=== PATIENT | female | born 1965 | race Caucasian/White ===

== ENCOUNTER 2016-04-08 12:52 | Emergency (ER) | payer BC ==
[2016-04-08 13:12] VITALS: RESP 18; TEMP 97.8
--- NOTE | 2016-04-08 14:35 | ED ---
Fall HPI - General Chief Complaint: Fall Stated Complaint: Fall- Head Injury Time Seen by Provider: 04/08/16 14:03 Source: patient, RN notes reviewed, old records reviewed Mode of arrival: ambulatory - History of Present Illness Initial Comments: Patient is a 51-year-old female presenting to the was she complaining of falling and hitting the back of her head while slipping on ice. Patient reports that she felt confused for a few minutes afterwards. She denies any specific loss of consciousness. She states she is on any blood thinners. She states that she's had multiple falls in the past however has never had a fall this hard to her head. She states that she does have a headache at this time. She did not take any Motrin or Tylenol at home. Patient denies any specific neurological deficits including vision changes, peripheral paresthesias or paralysis. Patient denies any recent fever, chills, shortness of breath, chest pain, back pain, abdominal pain, nausea vomiting, numbness or tingling, dysuria or hematuria, constipation or diarrhea, or visual changes, or any other current symptoms - Related Data Home Medications Medication Instructions Recorded Confirmed ALPRAZolam [Xanax] 0.25 mg PO BID PRN 05/13/15 05/13/15 Cholecalciferol [Vitamin D3] 4,000 unit PO DAILY 05/13/15 05/13/15 Loratadine [Claritin] 10 mg PO DAILY 05/13/15 05/13/15 Multivit-Min/FA/Lycopene/Lut 1 each PO DAILY 05/13/15 05/13/15 [Centrum Silver Tablet] Simvastatin [Zocor] 10 mg PO HS 05/13/15 05/13/15 Allergies Allergy/AdvReac Type Severity Reaction Status Date / Time No Known Allergies Allergy Verified 05/13/15 16:04 Review of Systems ROS Statement: Those systems with pertinent positive or pertinent negative responses have been documented in the HPI. ROS Other: All systems not noted in ROS Statement are negative. Past Medical History Past Medical History: Hyperlipidemia Additional Past Medical History / Comment(s): allergies, kidney stones History of Any Multi-Drug Resistant Organisms: None Reported Past Surgical History: Tubal Ligation Additional Past Surgical History / Comment(s): kidney stone destruction Past Psychological History: Anxiety Smoking Status: Never smoker Past Alcohol Use History: Rare Past Drug Use History: None Reported General Exam - General Exam Comments Initial Comments: is a pleasant 51-year-old female. She does not appear to be in any specific distress at this time. Limitations: no limitations General appearance: alert, in no apparent distress Head exam: Present: atraumatic, normocephalic, normal inspection Eye exam: Present: normal appearance, PERRL, EOMI. Absent: scleral icterus, conjunctival injection, periorbital swelling ENT exam: Present: normal exam, normal oropharynx, mucous membranes moist, TM's normal bilaterally Neck exam: Present: normal inspection. Absent: tenderness, meningismus, lymphadenopathy Respiratory exam: Present: normal lung sounds bilaterally. Absent: respiratory distress, wheezes, rales, rhonchi, stridor Cardiovascular Exam: Present: regular rate, normal rhythm, normal heart sounds. Absent: systolic murmur, diastolic murmur, rubs, gallop, clicks GI/Abdominal exam: Present: soft, normal bowel sounds. Absent: distended, tenderness, guarding, rebound, rigid Extremities exam: Present: normal inspection, full ROM, tenderness (Reports some cervical spinal tenderness.), normal capillary refill. Absent: pedal edema , joint swelling, calf tenderness Back exam: Present: normal inspection, full ROM Neurological exam: Present: alert, oriented X3, CN II-XII intact Expanded Patient oriented to: Present: person, place, time Speech: Present: fluid speech Cranial nerves: EOM's Intact: Normal, Gag Reflex: Normal, Tongue Deviation: Normal Cerebellar function: Finger to Nose: Normal Upper motor neuron: Sanket Neglect: Normal Sensory exam: Upper Extremity Light Touch: Normal, Lower Extremity Light Touch: Normal Motor strength exam: RUE: 5, LUE: 5, RLE: 5, LLE: 5 Eye Response: (4) open spontaneously Motor Response: (6) obeys commands Verbal Response: (5) oriented [place] Total: 15 Psychiatric exam: Present: normal affect, normal mood Skin exam: Present: warm, dry, intact, normal color. Absent: rash Course Vital Signs 04/08/16 04/08/16 13:08 15:33 Temperature 97.8 F Pulse Rate 69 73 Respiratory 18 18 Rate Blood Pressure 184/91 147/94 O2 Sat by Pulse 99 98 Oximetry Medical Decision Making - Medical Decision Making Patient is a 51-year-old male presenting to the EC if she complaint of falling and hitting her head on the ice. She states that she has a headache at this time. She has no neurological deficits this time. She is not on any blood thinners. Patient is given a CT brain and C-spine. Computed tomography scan brain and C-spine reviewed to be negative for any acute process. Patient states that she is not on any pain medications. Patient will be discharged at this time instructed to follow-up with her primary care physician in regards to her high blood pressure. Patient understands treatment plan will comply. Return parameters discussed and head injury instructions discussed. - Radiology Data Radiology results: report reviewed There is no acute fracture dislocation evident cervical spine. There is no acute cranial hemorrhage., Mass effect or midline shift seen. Patient cervical spine show satisfactory alignment without evidence of fracture dislocation. Multiple spondylosis present in loss of disc height present at C5 and C6 through 7. There is posterior osteophyte disc complex causing anterior mass effect on the thecal sac. There is associated foraminal encroachment present at C6 through 7 on the greater on the left than the right. Patient prevertebral soft tissue appears within normal limits. The C1-C2 articulation is unremarkable. Dr. Piper. Disposition Clinical Impression: Head injury without skull fracture, Headache, Hypertension Disposition: HOME SELF-CARE Condition: Good Instructions: Head Injury (ED), Concussion (ED) Additional Instructions: Patient instructed to take Motrin Tylenol for headaches. Patient is to follow- up with primary care physician in regards to high blood pressure. Return to the EC if any alarming signs or symptoms occur. Patient is instructed to follow head injury instructions. Referrals: Risa Aquino MD [Primary Care Provider] - 1-2 days Time of Disposition: 15:21
--- NOTE | 2016-04-08 15:18 | CT ---
EXAMINATION TYPE: CT brain cspine wo con DATE OF EXAM: 04/08/2016 3:00 PM COMPARISON: MR cervical spine performed May 2015, plain films 13 May 2015 HISTORY: Fall on ice. Posterior head injury. Loss of consciousness. CT DLP: 1433.90 mGycm Automated exposure control for dose reduction was used. TECHNIQUE: CT scan of the head and cervical spine are performed without contrast. FINDINGS: There is no acute intracranial hemorrhage, mass effect, or midline shift identified. The ventricles and sulci are within normal limits in size. The globes are intact and the visualized sin uses are clear. Small cephalohematoma present at the posterior scalp parietal level. Cervical spine is visualized in its entirety from C1 through upper thoracic levels and demonstrates s atisfactory alignment without evidence of acute fracture or dislocation. Multilevel spondylosis is pr esent, loss of disc height is present at C5-6 and C6-7, posterior osteophyte disc complex causes ante rior mass effect on the thecal sac. There is associated foraminal encroachment present on the right a t C6-7 greater than left, bilaterally at C5-6. Prevertebral soft tissue appears within normal limits. The C1-C2 articulation is unremarkable. IMPRESSION: 1. There is no acute fracture or dislocation evident in the cervical spine. 2. No acute intracranial hemorrhage, mass effect, or midline shift is seen.
[2016-04-08 15:34] VITALS: BP 147/94; PULSE 73
== END 2016-04-08 15:37 | disposition home or self-care (01) ==
LOC: EC 12:52
DX: S06.0X0A Concussion without loss of consciousness, initial encounter (principal); M47.812 Spondylosis without myelopathy or radiculopathy, cervical region; I10 Essential (primary) hypertension; E78.5 Hyperlipidemia, unspecified; F41.9 Anxiety disorder, unspecified; Z87.442 Personal history of urinary calculi; Z79.899 Other long term (current) drug therapy; W00.0XXA Fall on same level due to ice and snow, initial encounter
CPT/HCPCS: 70450; 72125; 99284

== ENCOUNTER → 2018-04-08 | Outpatient (CLI) | payer BC ==
--- NOTE | 2018-04-08 15:23 | CT ---
EXAMINATION TYPE: CT abdomen pelvis w con DATE OF EXAM: 04/08/2018 COMPARISON: NONE HISTORY: 53-year-old female LLQ pain TECHNIQUE: Contiguous axial scanning of the abdomen and pelvis following administration of 100 ml Iso leonardo 300 IV contrast. Delayed images through the kidneys and coronal/sagittal reconstructions perform ed. CT DLP: 524.2 mGycm Automated exposure control for dose reduction was used. FINDINGS: LUNG BASES: Mild dependent atelectasis without pleural effusion. LIVER/GB: Small amount of focal fat along the anterior falciform ligament. Otherwise, no specific abn ormality. PANCREAS: No significant abnormality is seen. SPLEEN: No significant abnormality is seen. ADRENALS: No significant abnormality is seen. KIDNEYS: 2.6 cm cyst lateral right kidney. Otherwise, symmetric uptake and excretion of contrast. No hydronephrosis. REPRODUCTIVE ORGANS: 1.6 cm dominant follicle or functional cyst in the right ovary. Peripherally enh ancing 1.2 cm cystic structure left ovary could represent a recently ruptured follicle or corpus lute um. Uterus is retroflexed with possible fluid within the uterine cavity or prominent endometrial thic kening. BOWEL: Normal appendix. Oral contrast progressed to the hepatic flexure. Mild stool burden. Mild lef t-sided colonic diverticulosis. No pericolonic inflammatory change. No mesenteric or retroperitoneal lymphadenopathy seen. Bones: Mild degenerative changes at the hips. Additional degenerative changes with moderate to severe degenerative disc disease at L5-S1. No osseous destructive process. IMPRESSION: 1. LIMITED ASSESSMENT OF PELVIC STRUCTURES BY CT. THE UTERUS IS RETROFLEXED AND COULD HAVE SOME FLUID IN THE UTERINE CAVITY OR PROMINENT ENDOMETRIAL THICKENING. ULTRASOUND CAN BE PERFORMED IF CONCERN FO R PELVIC PATHOLOGY. 2. 1.6 CM DOMINANT FOLLICLE OR FUNCTIONAL CYST OF THE RIGHT OVARY AND A 1.2 CM RECENTLY RUPTURED FOLL ICLE OR CORPUS LUTEUM IN THE LEFT. 3. MILD DIVERTICULAR CHANGE IN THE LEFT SIDE OF COLON. NO EVIDENCE FOR ACUTE DIVERTICULITIS.
== END | disposition home or self-care (01) ==
LOC: RADCTMAIN 12:21
PROVIDERS: ATTEND Family Medicine
DX: N83.201 Unspecified ovarian cyst, right side (principal); K57.30 Diverticulosis of large intestine without perforation or abscess without bleeding; Z87.442 Personal history of urinary calculi
CPT/HCPCS: 74177; Q9967

== ENCOUNTER → 2018-12-03 | Outpatient (CLI) | payer BC ==
--- NOTE | 2018-12-03 12:29 | EST ---
EXERCISE STRESS AGE: 53 SEX: F HT: 65" WT: 162 PROTOCOL: Veto Stress Test STAGE: III DURATION OF EXERCISE: 9:00 HEART RATE REST: 72 BLOOD PRESSURE REST: 153/104 MAXIMUM HEART RATE ACHIEVED: 157 MAXIMUM BLOOD PRESSURE: 194/90 85% MPHR: 140 100% MPHR: 165 METS: 10.5 INDICATIONS: Chest pain. CLINICAL INFORMATION: STRESS DATA: Heart rate 72, pressure 153/104 mmHg. Baseline EKG showed sinus mechanism. The patient exercised on the treadmill according to Veto protocol for a total of 9 minutes and achieved 10.5 METS with max heart rate was 151 study 157, which is about 92% of maximum predicted heart rate with maximum pressure of 194/90 mmHg. Clinically, the patient did not have any symptoms of chest pain or chest discomfort. The EKG did not show any significant ST or T-wave abnormalities concerning for ischemia. CONCLUSION: 1. Excellent exercise tolerance. 2. Normal EKG in response to exercise. 3. Essentially normal exercise treadmill stress test for the patient. MMODL / IJN: [id number] /
== END | disposition home or self-care (01) ==
LOC: RADNMMAIN 08:20
PROVIDERS: ATTEND Family Medicine
DX: R07.89 Other chest pain (principal)
CPT/HCPCS: 93017

== ENCOUNTER → 2018-12-15 | Outpatient (CLI) | payer BC ==
--- NOTE | 2018-12-15 14:00 | US ---
EXAMINATION TYPE: US venous doppler duplex LE LT DATE OF EXAM: 12/15/2018 1:36 PM COMPARISON: NONE CLINICAL HISTORY: S76.812A,M25.552 STRAIN MUSCLES, FASCIA AND TENDONS LT. Lump left groin, pain left leg SIDE PERFORMED: left TECHNIQUE: The lower extremity deep venous system is examined utilizing real time linear array sonog melba with graded compression, doppler sonography and color-flow sonography. VESSELS IMAGED: External Iliac Vein (EIV) Common Femoral Vein Deep Femoral Vein Greater Saphenous Vein * Femoral Vein Popliteal Vein Small Saphenous Vein * Proximal Calf Veins (* superficial vessels) There is normal flow, compressibility, vascular waveforms. Left Leg: No evidence of DVT. Scanned within area of patient's lump (left medial groin), probable li cammy, isoechoic area = 1.6 x 0.5 x 1.9cm IMPRESSION: No evident deep venous thrombosis. Probable lipoma at the site of patient's palpable a bnormality.
--- NOTE | 2018-12-15 15:20 | XR ---
EXAMINATION TYPE: XR Hip Complete LT DATE OF EXAM: 12/15/2018 COMPARISON: NONE HISTORY: Pain TECHNIQUE: 2 views submitted FINDINGS: There is no evidence of erosive change or acute fracture. Mild concentric narrowing the joint space with hypertrophic change of the acetabulum. Mild diffuse os teopenia. IMPRESSION: 1. Mild arthropathy correlate for femoral acetabular impingement.
== END | disposition home or self-care (01) ==
LOC: RADUSWWP 12:55
PROVIDERS: ATTEND Family Medicine
DX: S76.812A Strain of other specified muscles, fascia and tendons at thigh level, left thigh, initial encounter (principal)
CPT/HCPCS: 73502

== ENCOUNTER 2020-06-17 19:53 | Emergency (ER) | payer BC ==
[2020-06-17 20:32] VITALS: RESP 18; TEMP 98.3
--- NOTE | 2020-06-17 20:58 | XR ---
RESULT: HISTORY: fall TECHNIQUE: 3 views of the right shoulder. 2 views of the right humerus. COMPARISON: None. FINDINGS: There is no acute fracture or dislocation of the right shoulder or humerus. There is a tiny osteophyt e anterior inferior glenoid. Otherwise the visualized joint spaces are grossly preserved. IMPRESSION: No acute osseous abnormality of the right shoulder or humerus.
--- NOTE | 2020-06-17 21:29 | ED ---
General Adult HPI - General Chief complaint: Abdominal Pain Stated complaint: Fell off horse 1 week ago Time Seen by Provider: 06/17/20 20:37 Source: patient Mode of arrival: ambulatory Limitations: no limitations - History of Present Illness Initial comments: Patient is a 55-year-old female presenting to the emergency Department with complaints of right shoulder and right arm pain as well as some mild right-sided belly pain over the past week. Patient states 6 days ago she fell off a horse landing mostly on her right side in the position. Patient states she was evaluated by her PCP 4 days later who stated she mostly has contusions but was concerned for "possible liver laceration." Patient states she isn't really having much anterior abdominal pain, a little bit in the right upper quadrant but she describes it is very deep in nature. She does have some very mild right sided lateral rib pain as well as right upper arm and right shoulder pain. She states she is able to move it around it just hurts. She denies hitting her head, she did have a helmet on. She denies loss of consciousness. She denies any chest pain or shortness of breath at this time. She states she has been eating and drinking as normal, no nausea or vomiting, no diarrhea. She is urinating without difficulty. She has no further complaints. - Related Data Home Medications Medication Instructions Recorded Confirmed ALPRAZolam [Xanax] 0.25 mg PO BID PRN 05/13/15 05/13/15 Cholecalciferol [Vitamin D3] 4,000 unit PO DAILY 05/13/15 05/13/15 Loratadine [Claritin] 10 mg PO DAILY 05/13/15 05/13/15 Multivit-Min/FA/Lycopen/Lutein 1 each PO DAILY 05/13/15 05/13/15 [Centrum Silver Tablet] Simvastatin [Zocor] 10 mg PO HS 05/13/15 05/13/15 Allergies Allergy/AdvReac Type Severity Reaction Status Date / Time No Known Allergies Allergy Verified 06/17/20 20:33 Review of Systems ROS Statement: Those systems with pertinent positive or pertinent negative responses have been documented in the HPI. ROS Other: All systems not noted in ROS Statement are negative. Past Medical History Past Medical History: Hyperlipidemia Additional Past Medical History / Comment(s): allergies, kidney stones History of Any Multi-Drug Resistant Organisms: None Reported Past Surgical History: Tubal Ligation Additional Past Surgical History / Comment(s): kidney stone destruction Past Psychological History: Anxiety Smoking Status: Never smoker Past Alcohol Use History: Rare Past Drug Use History: None Reported General Exam - General Exam Comments Initial Comments: GENERAL: Patient is well-developed and well-nourished. Patient is nontoxic and in no acute distress. HEAD: Atraumatic, normocephalic. EYES: Pupils equal round and reactive to light, extraocular movements intact, sclera anicteric, conjunctiva are normal. Eyelids were unremarkable. ENT: TMs normal, nares patent, oropharynx clear without exudates. Moist mucous membranes. NECK: Normal range of motion, supple without lymphadenopathy or JVD. LUNGS: Unlabored respirations. Breath sounds clear to auscultation bilaterally and equal. No wheezes rales or rhonchi. HEART: Regular rate and rhythm without murmurs, rubs or gallops. ABDOMEN: Soft, very mild right upper quadrant tenderness. normoactive bowel sounds. No guarding, no rebound. No masses appreciated. : Deferred MUSCULOSKELETAL: Some mild pain with active range of motion of the right shoulder. No specific area tenderness, soreness all around. No bruising or signs of deformity. Neurovascular intact upper extremities bilaterally. No clubbing or cyanosis. Mild pain with palpation of the right lateral ribs. No step-off deformity, no crepitus. NEUROLOGICAL: Patient is alert and oriented x 3. Motor and sensory are also intact. Cranial nerves II through XII grossly intact. Symmetrical smile. Normal speech, normal gait. PSYCH: Normal mood, normal affect. SKIN: Warm, Dry, normal turgor, no rashes or lesions noted. Limitations: no limitations Course Vital Signs 06/17/20 06/17/20 20:25 22:03 Temperature 98.3 F Pulse Rate 82 68 Respiratory 18 18 Rate Blood Pressure 197/139 160/92 O2 Sat by Pulse 97 98 Oximetry Medical Decision Making - Medical Decision Making Patient is a 55-year-old female here with right shoulder and right arm pain as well as some mild right upper quadrant pain after she fell off a horse 6 days ago. Vital signs are stable. X-rays of the right shoulder and right humerus reveal no acute abnormality. Ultrasound revealed no acute abnormality of the liver, no gallstones or other abnormalities. Lab work is stable. I discussed these findings with the patient. She may continue with Motrin or Aleve for any discomfort. She can follow up with her PCP. Patient is stable for discharge. Patient is in agreement with this plan of care. Return parameters were discussed with the patient and they verbalized understanding. Case discussed with Dr. Marroquin. - Lab Data Result diagrams: 06/17/20 22:13 06/17/20 22:13 Lab Results 06/17/20 06/17/20 Range/Units 22:13 22:13 WBC 4.4 (3.8-10.6) k/uL RBC 4.69 (3.80-5.40) m/uL Hgb 14.6 (11.4-16.0) gm/dL Hct 41.4 (34.0-46.0) % MCV 88.3 (80.0-100.0) fL MCH 31.1 (25.0-35.0) pg MCHC 35.2 (31.0-37.0) g/dL RDW 12.1 (11.5-15.5) % Plt Count 307 (150-450) k/uL MPV 6.4 Neutrophils % 44 % Lymphocytes % 43 % Monocytes % 5 % Eosinophils % 5 % Basophils % 1 % Neutrophils # 2.0 (1.3-7.7) k/uL Lymphocytes # 1.9 (1.0-4.8) k/uL Monocytes # 0.2 (0-1.0) k/uL Eosinophils # 0.2 (0-0.7) k/uL Basophils # 0.0 (0-0.2) k/uL Sodium 139 (137-145) mmol/L Potassium 4.1 (3.5-5.1) mmol/L Chloride 106 (98-107) mmol/L Carbon Dioxide 24 (22-30) mmol/L Anion Gap 9 mmol/L BUN 21 H (7-17) mg/dL Creatinine 0.71 (0.52-1.04) mg/dL Est GFR (CKD-EPI)AfAm >90 (>60 ml/min/1.73 sqM) Est GFR (CKD-EPI)NonAf >90 (>60 ml/min/1.73 sqM) Glucose 95 (74-99) mg/dL Calcium 9.5 (8.4-10.2) mg/dL Total Bilirubin 0.6 (0.2-1.3) mg/dL AST 40 H (14-36) U/L ALT 54 H (4-34) U/L Alkaline Phosphatase 131 H (38-126) U/L Total Protein 7.4 (6.3-8.2) g/dL Albumin 4.3 (3.5-5.0) g/dL Disposition Clinical Impression: Contusion of right arm, Fall, Contusion of rib on right side Disposition: HOME SELF-CARE Condition: Stable Instructions (If sedation given, give patient instructions): Contusion in Adult s (ED) Additional Instructions: Please return to the Emergency Department if symptoms worsen or any other concerns. May take Motrin for any discomfort. Please follow-up with your regular doctor. Is patient prescribed a controlled substance at d/c from ED?: No Referrals: Risa Aquino MD [Primary Care Provider] - 1-2 days Time of Disposition: 22:51
[2020-06-17 22:04] VITALS: BP 160/92; PULSE 68
--- NOTE | 2020-06-17 22:26 | US ---
EXAMINATION TYPE: US liver DATE OF EXAM: 06/17/2020 COMPARISON: CT CLINICAL HISTORY: fall off horse, pain. EC patient c/o right lateral abdomen pain x 6 days since fell off horse. Patient ate 2 hours prior to US. EXAM MEASUREMENTS: Liver Length: 12.7 cm Gallbladder Wall: 0.2 cm CBD: 0.5 cm Right Kidney: 9.7 x 5.6 x 6.0 cm Pancreas: hyperechoic head portion visualized, remainder obscured by overlying bowel gas Liver: scanned intercostally and supinely as limited US scan windows due to overlying bowel gas; no m asses seen Gallbladder: wnl Evidence for sonographic Hunter's sign: tender at right abdomen and right ribs CBD: wnl Right Kidney: No hydronephrosis, lower pole renal cyst seen at cortex. No free fluid is seen RUQ or RLQ. Bowel gas is noted at patient's area of pain. IMPRESSION: No gallstones or dilated ducts. Cortical cyst 2.8 cm noted in the right kidney.
[2020-06-17 22:27] LABS: Basophils % (A) 1 %; Eosinophils # (A) 0.2 k/uL (0-0.7); Eosinophils % (A) 5 %; HCT 41.4 % (34.0-46.0); HGB 14.6 gm/dL (11.4-16.0); Lymphocytes # (A) 1.9 k/uL (1.0-4.8); Lymphocytes % (A) 43 %; MCH 31.1 pg (25.0-35.0); MCHC 35.2 g/dL (31.0-37.0); MCV 88.3 fL (80.0-100.0); Mean Platelet Volume 6.4; Monocytes # (A) 0.2 k/uL (0-1.0); Monocytes % (A) 5 %; Neutrophils % (A) 44 %; Platelet Count 307 k/uL (150-450); RBC 4.69 m/uL (3.80-5.40); RDW 12.1 % (11.5-15.5); WBC 4.4 k/uL (3.8-10.6)
[2020-06-17 22:37] LABS: ALT 54 U/L (4-34); AST 40 U/L (14-36); African American GFR (CKD) >90 (>60 ml/min/1.73 sqM); Albumin 4.3 g/dL (3.5-5.0); Alkaline Phosphatase 131 U/L (38-126); Anion Gap 9 mmol/L; Blood Urea Nitrogen 21 mg/dL (7-17); Calcium 9.5 mg/dL (8.4-10.2); Carbon Dioxide 24 mmol/L (22-30); Chloride 106 mmol/L (98-107); Glucose 95 mg/dL (74-99); Non-African American GFR(CKD) >90 (>60 ml/min/1.73 sqM); Potassium 4.1 mmol/L (3.5-5.1); Sodium 139 mmol/L (137-145); Total Bilirubin 0.6 mg/dL (0.2-1.3); Total Protein 7.4 g/dL (6.3-8.2)
== END 2020-06-17 22:55 | disposition home or self-care (01) ==
LOC: EC 19:53
DX: S40.021A Contusion of right upper arm, initial encounter (principal); S20.211A Contusion of right front wall of thorax, initial encounter; R10.11 Right upper quadrant pain; E78.5 Hyperlipidemia, unspecified; F41.9 Anxiety disorder, unspecified; V80.010A Animal-rider injured by fall from or being thrown from horse in noncollision accident, initial encounter; Y93.52 Activity, horseback riding
CPT/HCPCS: 36415; 76705; 80053; 85025; 99284

== ENCOUNTER 2023-01-09 08:30 | Day surgery (SDC) | payer BC ==
[2023-01-06 13:53] VITALS: BMI 28.3
[~2023-01-09 08:30] MED LIST: LACTATED RINGERS 1,000 ML IV SCH; LIDOCAINE 1% (10MG/ML) FOR IV START INTRADERMA PRN
[2023-01-09] MEDS ORDERED: LACTATED RINGERS 1,000 ML IV ONE (09:02)
[2023-01-09 09:13] VITALS: RESP 16; TEMP 97.8
[2023-01-09] MEDS ORDERED: PROPOFOL 10 MG/ML 20 ML VIAL IV ONE (09:20)
--- NOTE | 2023-01-09 09:39 | P.PCN ---
Date of Procedure: 01/09/23 Procedure(s) Performed: BRIEF HISTORY: Patient is a 57-year-old pleasant female scheduled for an elective colonoscopy as a part of screening for colon cancer. PROCEDURE PERFORMED: Colonoscopy. PREOPERATIVE DIAGNOSIS: Screening for colon cancer. IV sedation per Anesthesia. PROCEDURE: After informed consent was obtained, the patient, was brought into the endoscopy unit. IV sedation was administered by Anesthesia under continuous monitoring. Digital rectal examination was normal. Initially the Olympus CF-160 flexible video colonoscope was then inserted in the rectum, gradually advanced into the cecum without any difficulty. Careful examination was performed as the scope was gradually being withdrawn. Ileocecal valve and the appendiceal orifice were visualized and appeared normal. Prep was excellent. Mucosa of the cecum, ascending colon, transverse colon, descending colon, sigmoid colon, and rectum appeared normal. Retroflexion was performed in the rectum and no lesions were seen. The patient tolerated the procedure well. IMPRESSION: Normal-appearing colon from rectum to cecum with no evidence of colorectal neoplasia. RECOMMENDATIONS: Findings of this examination were discussed with the patient as well as a family. She was advised to have a repeat screening colonoscopy in 10 years..
[2023-01-09 10:20] VITALS: BP 99/55; PULSE 57
== END 2023-01-09 10:27 | disposition home or self-care (01) ==
LOC: ORWHC2ENDO 08:30
PROVIDERS: ATTEND Internal Medicine Gastroenterology
DX: Z12.11 Encounter for screening for malignant neoplasm of colon (principal); I10 Essential (primary) hypertension; E78.5 Hyperlipidemia, unspecified; M19.90 Unspecified osteoarthritis, unspecified site; F41.9 Anxiety disorder, unspecified; K59.00 Constipation, unspecified; Z79.899 Other long term (current) drug therapy
CPT/HCPCS: 45378; J2704